=== PATIENT | male | born 1955 | race Hispanic/Latino ===

== ENCOUNTER 2022-01-12 18:32 | Inpatient (IN) | payer OTHER ==
[~2022-01-12] VITALS: Ht 170.2 cm; Wt 61.9 kg
[~2022-01-12 18:32] MED LIST: ASPI-1005 PO; ATOR40TA69 PO; CLOP75TA14 PO; DULA1.5P SQ; FURO20TA6 PO; GLIM2TAB30 PO; LISI20TA24 PO; METO50TA9 PO; SITA1TAB6 PO
[2022-01-12 19:00] LABS: BASOPHILS % (AUTO) 0.2 % (0.0-5.0); EOSINOPHILS % (AUTO) 0.6 % (0.0-8.0); HEMATOCRIT 25.5 % (42-54); LYMPHOCYTES % (AUTO) 9.2 % (21.0-51.0); MEAN CORPUSCULAR HEMOGLOBIN 28.9 pg (27.0-33.0); MEAN CORPUSCULAR HGB CONC 31.4 g/dL (32.0-36.0); MEAN CORPUSCULAR VOLUME 92.1 fL (79-99); MONOCYTES % (AUTO) 6.9 % (3.0-13.0); NEUTROPHILS % (AUTO) 81.5 % (40.0-77.0); NUCLEATED RED BLOOD CELLS 0.1 % (0.0-0.19); PLATELET COUNT (AUTO) 639 K/uL (130-400); RED BLOOD CELL COUNT(AUTO) 2.77 MIL/uL (4.50-6.20); RED CELL DISTRIBUTION WIDTH 13.1 % (11.0-15.5); WHITE BLOOD COUNT (AUTO) 17.4 K/uL (4.8-10.8)
[2022-01-12 19:08] LABS: CREATININE 1.4 mg/dL (0.5-1.5); POTASSIUM 4.2 mmol/L (3.5-5.1)
[2022-01-12 19:13] LABS: ALBUMIN 2.2 g/dL (3.5-5.0); BILIRUBIN,TOTAL 0.7 mg/dL (0.2-1.0); TOTAL PROTEIN, SERUM 6.3 g/dL (6.0-8.3)
[2022-01-12] MEDS ORDERED: 0.9% NACL 500ML IV.SOLN 500 ML IV ONE ×2 (19:32→20:43)
[2022-01-12 20:14] LABS: ABG BASE EXCESS 0.4 mmol/L (-2.0-3.0); ABG HCO3 21.8 mmol/L (21.0-28.0); ABG OXYGEN SATURATION 95.2 % (95.0-99.0); ABG PCO2 27 mmHg (35-48)
[2022-01-12 20:38] LABS: APPEARANCE,URINE Cloudy (CLEAR); BILIRUBIN,URINE Small (NEGATIVE); COLOR,URINE Dark Yellow (YELLOW); GLUCOSE, URINE (UA) TRACE mg/dL (NEGATIVE); KETONES,URINE Trace mg/dL (NEGATIVE); LEUKOCYTE ESTERASE ,URINE Moderate (NEGATIVE); NITRATE,URINE Negative (NEGATIVE); OCCULT BLOOD,URINE Negative (NEGATIVE); PROTEIN,URINE POS 1+ mg/dL (NEGATIVE)
[2022-01-12 20:54] LABS: BACTERIA,URINE Few /HPF (None Seen); RBC,URINE 0-1 /HPF (0-1)
[2022-01-12 20:55] LABS: SQUAMOUS EPITHELIAL CELL,UR Few /HPF (0-2)
[2022-01-12] MEDS ORDERED: 0.9%NACL 100ML 100 ML ONE (21:56)
[2022-01-12] MEDS ORDERED: CALCIUM GLUC 1GM/10ML VIAL IV ONE (22:00)
[2022-01-12] MEDS ORDERED: CEFTRIAXONE 1G VIAL IVP ONE (22:00)
[2022-01-12] MEDS ORDERED: INSULIN HUMULIN R 100 UNIT/ML 3ML IV ONE (22:00)
[2022-01-12] MEDS ORDERED: ALBUTEROL 0.083% 2.5 MG/3 ML INH IH PRN (23:30)
[2022-01-12] MEDS ORDERED: ONDANSETRON 4MG INJ IV PRN (23:30)
[2022-01-12] MEDS ORDERED: NITROGLYCERIN 0.4 MG SL TAB SL PRN (23:30)
[2022-01-12] MEDS ORDERED: MORPHINE 2 MG SYG IV PRN (23:30)
[2022-01-12] MEDS ORDERED: ACETAMINOPHEN 325 MG TAB PO PRN (23:30)
[2022-01-12] MEDS ORDERED: FUROSEMIDE 40MG VIAL IV ONE (23:30)
[2022-01-12] MEDS: FUROSEMIDE 40MG VIAL IV SCH (23:58)
[2022-01-13] VITALS (23 sets, daily range): BP systolic 81–127; BP diastolic 33–73
[2022-01-13] MEDS ORDERED: 0.9% NACL 250ML 250 ML ONE (00:30)
[2022-01-13] MEDS ORDERED: 0.9%NACL 50ML 50 ML IV ONE (04:58)
[2022-01-13] MEDS: ZOSYN 3.375GM+NS 50ML 50 ML IV SCH ×3 (05:09→21:31)
[2022-01-13 07:26] LABS: HEMOGLOBIN A1C 8.6 % (4.0-6.0)
[2022-01-13 08:26] LABS: ABG BASE EXCESS -1.3 mmol/L (-2.0-3.0); ABG HCO3 20.5 mmol/L (21.0-28.0); ABG OXYGEN SATURATION 95.3 % (95.0-99.0); ABG PCO2 27 mmHg (35-48)
[2022-01-13 08:38] LABS: HEMATOCRIT 27.1 % (42-54); MEAN CORPUSCULAR HEMOGLOBIN 29.1 pg (27.0-33.0); MEAN CORPUSCULAR HGB CONC 32.8 g/dL (32.0-36.0); MEAN CORPUSCULAR VOLUME 88.6 fL (79-99); RED BLOOD CELL COUNT(AUTO) 3.06 MIL/uL (4.50-6.20); RED CELL DISTRIBUTION WIDTH 13.2 % (11.0-15.5); WHITE BLOOD COUNT (AUTO) 16.5 K/uL (4.8-10.8)
[2022-01-13 09:00] LABS: CREATININE 0.8 mg/dL (0.5-1.5); POTASSIUM 3.9 mmol/L (3.5-5.1)
[2022-01-13] MEDS ORDERED: METOPROLOL TARTRATE 25 MG TAB PO SCH (09:00)
[2022-01-13] MEDS: INSULIN HUMULIN R 100 UNIT/ML 3ML SQ SCH ×3 (11:43→21:31)
[2022-01-13] MEDS: FUROSEMIDE 40MG VIAL IV SCH (11:44)
[2022-01-13] MEDS: ASPIRIN 81 MG EC TAB PO SCH (11:48)
[2022-01-13 20:13] LABS: APPEARANCE BODY FLUID BLOODY (CLEAR); BODY FLUID RBC 427000 /cu. mm.; BODY FLUID WBC 456 /cu. mm.; COLOR,BODY FLUID RED (LT YELLOW); SPECIMENTYPE,BODY FLUID PLEURAL; TOTAL VOLUME,BODY FLUID 100 mL
[2022-01-13 20:37] LABS: BF LYMPHOCYTE 13 %; BF MONOCYTE 2 %
[2022-01-13] MEDS: ATORVASTATIN 40 MG TABLET PO SCH ×2 (21:00→21:29)
[2022-01-13] MEDS ORDERED: 0.9%NACL 50ML 100 ML IV ONE (21:27)
[2022-01-14 03:45] VITALS: BP 102/63
[2022-01-14] MEDS: ZOSYN 3.375GM+NS 50ML 50 ML IV SCH ×3 (04:12→21:03)
[2022-01-14] MEDS: INSULIN HUMULIN R 100 UNIT/ML 3ML SQ SCH ×4 (06:26→21:00)
[2022-01-14 08:23] VITALS: BP 106/63
[2022-01-14] MEDS: LISINOPRIL 20 MG TABLET PO SCH (09:00)
[2022-01-14] MEDS ORDERED: ASPIRIN 81MG CHEW TAB PO SCH (09:00)
[2022-01-14] MEDS: ASPIRIN 81 MG EC TAB PO SCH (09:23)
[2022-01-14] MEDS: METOPROLOL SUCCINATE 50 MG TAB.SR.24H PO SCH (09:24)
[2022-01-14] MEDS: CLOPIDOGREL 75MG TAB PO SCH (09:24)
[2022-01-14] MEDS: FUROSEMIDE 20 MG TABLET PO SCH ×2 (09:24→16:54)
[2022-01-14 11:47] LABS: HEMATOCRIT 24.6 % (42-54); MEAN CORPUSCULAR HEMOGLOBIN 28.8 pg (27.0-33.0); MEAN CORPUSCULAR HGB CONC 32.5 g/dL (32.0-36.0); MEAN CORPUSCULAR VOLUME 88.5 fL (79-99); RED BLOOD CELL COUNT(AUTO) 2.78 MIL/uL (4.50-6.20); RED CELL DISTRIBUTION WIDTH 13.3 % (11.0-15.5)
[2022-01-14 12:19] VITALS: BP 93/55
[2022-01-14 12:22] LABS: CREATININE 0.9 mg/dL (0.5-1.5)
[2022-01-14 16:42] VITALS: BP 103/63
[2022-01-14 19:21] VITALS: BP 96/54
[2022-01-14] MEDS ORDERED: 0.9%NACL 50ML 50 ML IV ONE (20:18)
[2022-01-14] MEDS: ATORVASTATIN 40 MG TABLET PO SCH ×2 (20:22→21:03)
[2022-01-15] VITALS (7 sets, daily range): BP systolic 96–118; BP diastolic 58–89
[2022-01-15 04:10] LABS: HEMATOCRIT 22.7 % (42-54); MEAN CORPUSCULAR HEMOGLOBIN 28.9 pg (27.0-33.0); MEAN CORPUSCULAR HGB CONC 32.6 g/dL (32.0-36.0); MEAN CORPUSCULAR VOLUME 88.7 fL (79-99); RED BLOOD CELL COUNT(AUTO) 2.56 MIL/uL (4.50-6.20); RED CELL DISTRIBUTION WIDTH 13.3 % (11.0-15.5); WHITE BLOOD COUNT (AUTO) 13.7 K/uL (4.8-10.8)
[2022-01-15 05:35] LABS: CREATININE 0.8 mg/dL (0.5-1.5); POTASSIUM 3.8 mmol/L (3.5-5.1)
[2022-01-15] MEDS ORDERED: 0.9%NACL 50ML 50 ML IV ONE ×2 (06:00→22:15)
[2022-01-15] MEDS: ZOSYN 3.375GM+NS 50ML 50 ML IV SCH ×3 (06:02→22:18)
[2022-01-15] MEDS: INSULIN HUMULIN R 100 UNIT/ML 3ML SQ SCH ×4 (07:59→22:20)
[2022-01-15] MEDS: LISINOPRIL 20 MG TABLET PO SCH (09:00)
[2022-01-15] MEDS: METOPROLOL SUCCINATE 50 MG TAB.SR.24H PO SCH (09:00)
[2022-01-15] MEDS ORDERED: POLYETHYLENE GLYCOL 3350 17 GM POWD.PACK ONE (09:20)
[2022-01-15] MEDS: CLOPIDOGREL 75MG TAB PO SCH (09:50)
[2022-01-15] MEDS: FUROSEMIDE 20 MG TABLET PO SCH ×2 (09:51→17:18)
[2022-01-15] MEDS: ASPIRIN 81 MG EC TAB PO SCH (09:59)
[2022-01-15] MEDS ORDERED: LISINOPRIL 10 MG TABLET PO SCH (10:30)
[2022-01-15 17:01] LABS: THYROID STIMULATING HORMONE 2.39 uIU/mL (0.36-3.74)
[2022-01-15] MEDS ORDERED: GUAIFENESIN-DM 200/20 MG 10 ML ONE (17:53)
[2022-01-15] MEDS ORDERED: GUAIFENESIN-DM 200/20 MG 10 ML PO PRN (18:00)
[2022-01-15] MEDS: ATORVASTATIN 40 MG TABLET PO SCH ×2 (20:12→22:18)
[2022-01-16] VITALS (7 sets, daily range): BP systolic 105–119; BP diastolic 65–75
[2022-01-16 04:15] LABS: BASOPHILS % (AUTO) 0.2 % (0.0-5.0); EOSINOPHILS % (AUTO) 0.6 % (0.0-8.0); HEMATOCRIT 22.4 % (42-54); LYMPHOCYTES % (AUTO) 8.7 % (21.0-51.0); MEAN CORPUSCULAR HEMOGLOBIN 28.5 pg (27.0-33.0); MEAN CORPUSCULAR VOLUME 86.2 fL (79-99); MONOCYTES % (AUTO) 6.9 % (3.0-13.0); PLATELET COUNT (AUTO) 640 K/uL (130-400); RED CELL DISTRIBUTION WIDTH 13.3 % (11.0-15.5); WHITE BLOOD COUNT (AUTO) 12.1 K/uL (4.8-10.8)
[2022-01-16 04:45] LABS: ALBUMIN 1.7 g/dL (3.5-5.0); BILIRUBIN,TOTAL 0.5 mg/dL (0.2-1.0); CREATININE 0.7 mg/dL (0.5-1.5); POTASSIUM 3.3 mmol/L (3.5-5.1); TOTAL PROTEIN, SERUM 6.1 g/dL (6.0-8.3)
[2022-01-16] MEDS ORDERED: 0.9%NACL 50ML 50 ML IV ONE (05:49)
[2022-01-16] MEDS: ZOSYN 3.375GM+NS 50ML 50 ML IV SCH ×3 (05:54→20:47)
[2022-01-16] MEDS: INSULIN HUMULIN R 100 UNIT/ML 3ML SQ SCH ×4 (06:58→20:50)
[2022-01-16] MEDS ORDERED: KCL 20 MEQ ERTAB PO ONE (08:17)
[2022-01-16] MEDS: ASPIRIN 81 MG EC TAB PO SCH (08:28)
[2022-01-16] MEDS: METOPROLOL SUCCINATE 50 MG TAB.SR.24H PO SCH (08:28)
[2022-01-16] MEDS: CLOPIDOGREL 75MG TAB PO SCH (08:28)
[2022-01-16] MEDS: FUROSEMIDE 20 MG TABLET PO SCH (08:28)
[2022-01-16] MEDS: POLYETHYLENE GLYCOL 3350 17 GM POWD.PACK PO SCH (08:28)
[2022-01-16] MEDS ORDERED: POTASSIUM CHLORIDE 20MEQ/100ML 100 ML IV PRN (08:30)
[2022-01-16] MEDS ORDERED: POTASSIUM CHLORIDE 10% ELIXIR 20 MEQ/15 ML UDCUP PO PRN (08:30)
[2022-01-16] MEDS ORDERED: LIDOCAINE HCL-MPF 1% 2ML VIAL IV PRN (08:30)
[2022-01-16] MEDS ORDERED: LISINOPRIL 10 MG TABLET PO SCH (09:00)
[2022-01-16] MEDS: FUROSEMIDE 20MG VIAL IV SCH ×2 (09:00→20:47)
[2022-01-16 09:13] LABS: ABG BASE EXCESS 0.3 mmol/L (-2.0-3.0); ABG HCO3 21.8 mmol/L (21.0-28.0); ABG OXYGEN SATURATION 94.7 % (95.0-99.0); ABG PCO2 28 mmHg (35-48)
[2022-01-16] MEDS: IPRATROPIUM/ALBUTEROL SULFATE 3 ML SOLUTION IH SCH ×3 (11:09→23:20)
[2022-01-16] MEDS: ATORVASTATIN 40 MG TABLET PO SCH ×2 (19:54→20:47)
[2022-01-17] VITALS (11 sets, daily range): BP systolic 97–122; BP diastolic 46–68
[2022-01-17] MEDS: ZOSYN 3.375GM+NS 50ML 50 ML IV SCH ×3 (04:01→20:47)
[2022-01-17 04:39] LABS: MEAN CORPUSCULAR HEMOGLOBIN 29.1 pg (27.0-33.0); MEAN CORPUSCULAR HGB CONC 32.6 g/dL (32.0-36.0); MEAN CORPUSCULAR VOLUME 89.1 fL (79-99); RED BLOOD CELL COUNT(AUTO) 2.58 MIL/uL (4.50-6.20); RED CELL DISTRIBUTION WIDTH 13.7 % (11.0-15.5); WHITE BLOOD COUNT (AUTO) 11.3 K/uL (4.8-10.8)
[2022-01-17 04:50] LABS: INR 1.2 (0.85-1.15); PROTHROMBIN TIME 12.9 SEC (9.6-11.6)
[2022-01-17 04:51] LABS: CREATININE 0.7 mg/dL (0.5-1.5); POTASSIUM 3.4 mmol/L (3.5-5.1)
[2022-01-17 05:15] LABS: PLATELET COUNT (AUTO) 741 K/uL (130-400)
[2022-01-17] MEDS: KCL 20 MEQ ERTAB PO PRN ×2 (05:19→09:01)
[2022-01-17] MEDS: IPRATROPIUM/ALBUTEROL SULFATE 3 ML SOLUTION IH SCH ×5 (06:38→22:01)
[2022-01-17] MEDS: FUROSEMIDE 20MG VIAL IV SCH ×2 (08:25→20:47)
[2022-01-17] MEDS: METOPROLOL SUCCINATE 50 MG TAB.SR.24H PO SCH (08:26)
[2022-01-17] MEDS: POLYETHYLENE GLYCOL 3350 17 GM POWD.PACK PO SCH (08:26)
[2022-01-17] MEDS: INSULIN HUMULIN R 100 UNIT/ML 3ML SQ SCH ×4 (08:28→20:48)
[2022-01-17] MEDS: ACETYLCYSTEINE 10% 100MG/ML 4ML VIAL IH SCH ×4 (09:57→22:01)
[2022-01-17 14:10] LABS: BASOPHILS % (AUTO) 0.2 % (0.0-5.0); EOSINOPHILS % (AUTO) 0.2 % (0.0-8.0); HEMATOCRIT 23.5 % (42-54); LYMPHOCYTES % (AUTO) 8.7 % (21.0-51.0); MEAN CORPUSCULAR HEMOGLOBIN 28.7 pg (27.0-33.0); MEAN CORPUSCULAR HGB CONC 32.3 g/dL (32.0-36.0); MEAN CORPUSCULAR VOLUME 88.7 fL (79-99); MONOCYTES % (AUTO) 9.2 % (3.0-13.0); NEUTROPHILS % (AUTO) 81.1 % (40.0-77.0); RED BLOOD CELL COUNT(AUTO) 2.65 MIL/uL (4.50-6.20); RED CELL DISTRIBUTION WIDTH 13.9 % (11.0-15.5); WHITE BLOOD COUNT (AUTO) 11.5 K/uL (4.8-10.8)
[2022-01-17 14:18] LABS: PLATELET COUNT (AUTO) 781 K/uL (130-400)
[2022-01-17] MEDS ORDERED: LIDOCAINE HCL MPF 1% 5ML VIAL ONE (14:51)
[2022-01-17] MEDS: ATORVASTATIN 40 MG TABLET PO SCH ×2 (19:20→20:49)
[2022-01-18 00:12] VITALS: BP 108/66
[2022-01-18] MEDS: IPRATROPIUM/ALBUTEROL SULFATE 3 ML SOLUTION IH SCH ×6 (02:17→21:52)
[2022-01-18] MEDS: ACETYLCYSTEINE 10% 100MG/ML 4ML VIAL IH SCH ×6 (02:17→21:52)
[2022-01-18 04:00] VITALS: BP 103/61
[2022-01-18 04:09] LABS: BASOPHILS % (AUTO) 0.1 % (0.0-5.0); EOSINOPHILS % (AUTO) 2.2 % (0.0-8.0); HEMATOCRIT 23.8 % (42-54); LYMPHOCYTES % (AUTO) 12.3 % (21.0-51.0); MEAN CORPUSCULAR HEMOGLOBIN 27.8 pg (27.0-33.0); MEAN CORPUSCULAR HGB CONC 31.9 g/dL (32.0-36.0); MEAN CORPUSCULAR VOLUME 87.2 fL (79-99); RED BLOOD CELL COUNT(AUTO) 2.73 MIL/uL (4.50-6.20); RED CELL DISTRIBUTION WIDTH 13.8 % (11.0-15.5); WHITE BLOOD COUNT (AUTO) 9.9 K/uL (4.8-10.8)
[2022-01-18 04:16] LABS: PLATELET COUNT (AUTO) 708 K/uL (130-400)
[2022-01-18 04:33] LABS: ALBUMIN 1.7 g/dL (3.5-5.0); BILIRUBIN,TOTAL 0.6 mg/dL (0.2-1.0); CREATININE 0.6 mg/dL (0.5-1.5); POTASSIUM 3.5 mmol/L (3.5-5.1)
[2022-01-18] MEDS ORDERED: 0.9%NACL 50ML 50 ML IV ONE ×2 (04:37→19:51)
[2022-01-18] MEDS: ZOSYN 3.375GM+NS 50ML 50 ML IV SCH ×3 (05:02→20:23)
[2022-01-18] MEDS: INSULIN HUMULIN R 100 UNIT/ML 3ML SQ SCH ×4 (06:15→20:24)
[2022-01-18] MEDS ORDERED: ASPIRIN 81 MG EC TAB ONE (07:31)
[2022-01-18] MEDS ORDERED: CLOPIDOGREL 75MG TAB ONE (07:31)
[2022-01-18] MEDS: POLYETHYLENE GLYCOL 3350 17 GM POWD.PACK PO SCH (07:58)
[2022-01-18] MEDS: KCL 20 MEQ ERTAB PO PRN (07:59)
[2022-01-18] MEDS: ASPIRIN 81 MG EC TAB PO SCH (07:59)
[2022-01-18] MEDS: CLOPIDOGREL 75MG TAB PO SCH (07:59)
[2022-01-18] MEDS: METOPROLOL SUCCINATE 50 MG TAB.SR.24H PO SCH (07:59)
[2022-01-18] MEDS: FUROSEMIDE 20MG VIAL IV SCH ×2 (07:59→20:23)
[2022-01-18 08:24] VITALS: BP 123/58
[2022-01-18 12:08] VITALS: BP 101/58
[2022-01-18 16:41] VITALS: BP 106/62
[2022-01-18 19:03] VITALS: BP 104/60
[2022-01-18] MEDS: ATORVASTATIN 40 MG TABLET PO SCH ×2 (20:23→20:25)
[2022-01-19 00:03] VITALS: BP 101/58
[2022-01-19] MEDS: IPRATROPIUM/ALBUTEROL SULFATE 3 ML SOLUTION IH SCH ×6 (02:02→21:58)
[2022-01-19] MEDS: ACETYLCYSTEINE 10% 100MG/ML 4ML VIAL IH SCH ×6 (02:02→21:58)
[2022-01-19 03:06] VITALS: BP 103/57
[2022-01-19 04:08] LABS: BASOPHILS % (AUTO) 0.2 % (0.0-5.0); EOSINOPHILS % (AUTO) 1.1 % (0.0-8.0); HEMATOCRIT 25.7 % (42-54); LYMPHOCYTES % (AUTO) 4.5 % (21.0-51.0); MEAN CORPUSCULAR HEMOGLOBIN 27.7 pg (27.0-33.0); MEAN CORPUSCULAR HGB CONC 31.9 g/dL (32.0-36.0); MEAN CORPUSCULAR VOLUME 86.8 fL (79-99); MONOCYTES % (AUTO) 6.4 % (3.0-13.0); NEUTROPHILS % (AUTO) 87.3 % (40.0-77.0); RED BLOOD CELL COUNT(AUTO) 2.96 MIL/uL (4.50-6.20); RED CELL DISTRIBUTION WIDTH 13.8 % (11.0-15.5); WHITE BLOOD COUNT (AUTO) 16.8 K/uL (4.8-10.8)
[2022-01-19 04:17] LABS: PLATELET COUNT (AUTO) 735 K/uL (130-400)
[2022-01-19 04:29] LABS: ALBUMIN 1.7 g/dL (3.5-5.0); BILIRUBIN,TOTAL 0.6 mg/dL (0.2-1.0); CREATININE 0.6 mg/dL (0.5-1.5); POTASSIUM 3.5 mmol/L (3.5-5.1); TOTAL PROTEIN, SERUM 6.1 g/dL (6.0-8.3)
[2022-01-19] MEDS: ZOSYN 3.375GM+NS 50ML 50 ML IV SCH ×3 (04:58→22:25)
[2022-01-19] MEDS: KCL 20 MEQ ERTAB PO PRN ×2 (05:42→09:33)
[2022-01-19] MEDS: INSULIN HUMULIN R 100 UNIT/ML 3ML SQ SCH ×4 (06:09→22:35)
[2022-01-19 08:05] VITALS: BP 99/57
[2022-01-19] MEDS: METOPROLOL SUCCINATE 50 MG TAB.SR.24H PO SCH (09:00)
[2022-01-19] MEDS: POLYETHYLENE GLYCOL 3350 17 GM POWD.PACK PO SCH (09:00)
[2022-01-19] MEDS: ASPIRIN 81 MG EC TAB PO SCH (09:32)
[2022-01-19] MEDS: CLOPIDOGREL 75MG TAB PO SCH (09:32)
[2022-01-19] MEDS: FUROSEMIDE 20MG VIAL IV SCH ×2 (09:33→22:25)
[2022-01-19 11:30] VITALS: BP 96/58
[2022-01-19 16:15] VITALS: BP 110/65
[2022-01-19 19:15] VITALS: BP 109/63
[2022-01-19] MEDS: ATORVASTATIN 40 MG TABLET PO SCH ×2 (21:00→22:27)
[2022-01-19] MEDS ORDERED: 0.9%NACL 50ML 50 ML IV ONE (22:09)
[2022-01-20] VITALS (7 sets, daily range): BP systolic 91–118; BP diastolic 55–72
[2022-01-20] MEDS: IPRATROPIUM/ALBUTEROL SULFATE 3 ML SOLUTION IH SCH ×7 (01:28→23:21)
[2022-01-20] MEDS: ACETYLCYSTEINE 10% 100MG/ML 4ML VIAL IH SCH ×6 (02:32→23:21)
[2022-01-20 04:06] LABS: BASOPHILS % (AUTO) 0.1 % (0.0-5.0); EOSINOPHILS % (AUTO) 0.3 % (0.0-8.0); LYMPHOCYTES % (AUTO) 6.1 % (21.0-51.0); MEAN CORPUSCULAR HEMOGLOBIN 26.9 pg (27.0-33.0); MEAN CORPUSCULAR VOLUME 84.2 fL (79-99); MONOCYTES % (AUTO) 7.9 % (3.0-13.0); NEUTROPHILS % (AUTO) 84.6 % (40.0-77.0); PLATELET COUNT (AUTO) 664 K/uL (130-400); RED BLOOD CELL COUNT(AUTO) 2.97 MIL/uL (4.50-6.20); RED CELL DISTRIBUTION WIDTH 14.1 % (11.0-15.5); WHITE BLOOD COUNT (AUTO) 17.2 K/uL (4.8-10.8)
[2022-01-20 04:17] LABS: ALBUMIN 1.6 g/dL (3.5-5.0); BILIRUBIN,TOTAL 0.7 mg/dL (0.2-1.0); CREATININE 0.7 mg/dL (0.5-1.5); POTASSIUM 3.3 mmol/L (3.5-5.1); TOTAL PROTEIN, SERUM 6.3 g/dL (6.0-8.3)
[2022-01-20] MEDS ORDERED: 0.9%NACL 50ML 50 ML IV ONE ×2 (04:38→21:27)
[2022-01-20] MEDS: ZOSYN 3.375GM+NS 50ML 50 ML IV SCH ×3 (04:59→21:21)
[2022-01-20] MEDS: INSULIN HUMULIN R 100 UNIT/ML 3ML SQ SCH ×4 (07:30→21:00)
[2022-01-20] MEDS: POLYETHYLENE GLYCOL 3350 17 GM POWD.PACK PO SCH (09:05)
[2022-01-20] MEDS: CLOPIDOGREL 75MG TAB PO SCH (09:05)
[2022-01-20] MEDS: ASPIRIN 81 MG EC TAB PO SCH (09:05)
[2022-01-20] MEDS: METOPROLOL SUCCINATE 50 MG TAB.SR.24H PO SCH (09:05)
[2022-01-20] MEDS: FUROSEMIDE 20MG VIAL IV SCH ×2 (09:05→21:21)
[2022-01-20] MEDS: KCL 20 MEQ ERTAB PO PRN ×2 (11:52→17:13)
[2022-01-20] MEDS: ATORVASTATIN 40 MG TABLET PO SCH ×2 (21:00→21:21)
== END 2022-01-21 01:00 | DRG 871 ==
LOC: EDH 18:32 → EDHIP 21:41 → UNDOADMOB 21:41 → EDHIP 23:11 → OBSVTOIN 23:11 → 2CH 01-13 07:26 → 2DH 01-13 20:09
PROVIDERS: ADMIT Internal Medicine; ATTEND Internal Medicine
PROC: 0W9B30Z Drainage of Left Pleural Cavity with Drainage Device, Percutaneous Approach (ICD-10-PCS; principal; 2022-01-13)
PROC: 30233N1 Transfusion of Nonautologous Red Blood Cells into Peripheral Vein, Percutaneous Approach (ICD-10-PCS; 2022-01-13)
DX: A41.9 Sepsis, unspecified organism (principal); J96.01 Acute respiratory failure with hypoxia; I21.4 Non-ST elevation (NSTEMI) myocardial infarction; N39.0 Urinary tract infection, site not specified; J91.8 Pleural effusion in other conditions classified elsewhere; J94.2 Hemothorax; D64.9 Anemia, unspecified; I50.9 Heart failure, unspecified; E11.65 Type 2 diabetes mellitus with hyperglycemia; I25.10 Atherosclerotic heart disease of native coronary artery without angina pectoris; E78.5 Hyperlipidemia, unspecified; Z96.652 Presence of left artificial knee joint; E78.00 Pure hypercholesterolemia, unspecified; I11.0 Hypertensive heart disease with heart failure; Z95.1 Presence of aortocoronary bypass graft; Z79.82 Long term (current) use of aspirin; Z79.02 Long term (current) use of antithrombotics/antiplatelets; Z79.84 Long term (current) use of oral hypoglycemic drugs; Z79.899 Other long term (current) drug therapy; Z83.3 Family history of diabetes mellitus; Z82.49 Family history of ischemic heart disease and other diseases of the circulatory system
CPT/HCPCS: 32557; 36415; 36600; 70450; 70547; 70551; 71045; 71250; 74176; 80048; 80053; 81001; 82140; 82550; 82803; 82945; 82948; 83036; 83605; 83615; 83874; 83880; 83986; 84155; 84157; 84443; 84484; 85025; 85027; 85610; 85730; 86850; 86900; 86901; 86923; 87040; 87071; 87088; 87116; 87205; 87206; 89051; 93005; 93306; 93880; 94640; 94664; 94667; 94668; 97039; 99291; C1729; G0378; J0610; J0696; J1815; J1940; J2543; J3490; J7040; J7050; J7608; P9016

== ENCOUNTER → 2023-11-22 | Outpatient (CLI) | payer OTHER ==
[~2023-11-22] MED LIST changes: +CLOP-31 PO; -CLOP75TA14 PO
[2023-11-22 12:40] LABS: CHOLESTEROL 94 mg/dL (<200); HDL CHOLESTEROL 48 mg/dL (29-71); LDL DIRECT 43 mg/dL (0-99); TRIGLYCERIDES 124 mg/dL (30-200)
== END | disposition home or self-care (01) ==
LOC: LAB 08:47
PROVIDERS: ATTEND Student in an Organized Health Care Education/Training Program
DX: I10 Essential (primary) hypertension (principal); Z95.1 Presence of aortocoronary bypass graft
CPT/HCPCS: 36415; 80061

== ENCOUNTER → 2024-01-16 | Outpatient (CLI) | payer OTHER ==
[2024-01-16 12:39] LABS: ALBUMIN 3.6 g/dL (3.5-5.0); BILIRUBIN,TOTAL 0.6 mg/dL (0.2-1.0); CREATININE 0.7 mg/dL (0.5-1.3); TOTAL PROTEIN, SERUM 7.3 g/dL (6.0-8.3)
== END | disposition home or self-care (01) ==
LOC: LAB 09:58
PROVIDERS: ATTEND Student in an Organized Health Care Education/Training Program
DX: E78.2 Mixed hyperlipidemia (principal); F09 Unspecified mental disorder due to known physiological condition; I11.0 Hypertensive heart disease with heart failure; I50.42 Chronic combined systolic (congestive) and diastolic (congestive) heart failure; R06.02 Shortness of breath; I73.9 Peripheral vascular disease, unspecified; Z95.1 Presence of aortocoronary bypass graft
CPT/HCPCS: 36415; 80053

== ENCOUNTER → 2024-01-22 | Outpatient (CLI) | payer OTHER ==
[~2024-01-22] MED LIST changes: +IOHEXOL 350 MG/ML 100ML INFUS..BTL IV ONE; +IOHEXOL-350 50ML VIAL IV ONE
== END | disposition home or self-care (01) ==
LOC: RAH 08:52
PROVIDERS: ATTEND Student in an Organized Health Care Education/Training Program
DX: I70.203 Unspecified atherosclerosis of native arteries of extremities, bilateral legs (principal); K57.90 Diverticulosis of intestine, part unspecified, without perforation or abscess without bleeding; I25.10 Atherosclerotic heart disease of native coronary artery without angina pectoris; M47.815 Spondylosis without myelopathy or radiculopathy, thoracolumbar region; I70.0 Atherosclerosis of aorta; Z98.890 Other specified postprocedural states
CPT/HCPCS: 75635; Q9967 ×2